=== PATIENT | male | born 1990 | race Caucasian/White ===

== ENCOUNTER 2022-01-01 16:13 | Emergency (ER) | payer OTHER ==
[~2022-01-01] VITALS: Ht 177.8 cm; Wt 108.9 kg
[2022-01-01 17:47] VITALS: BP 118/66
--- NOTE | 2022-01-01 17:58 | NUR ---
PT LEFT, NOT SEEN BY ERMD PROVIDER
== END 2022-01-01 18:00 | disposition left against medical advice (07) ==
LOC: ER 16:56
DX: Z53.21 Procedure and treatment not carried out due to patient leaving prior to being seen by health care provider (principal)